=== PATIENT | male | born 1955 | race Caucasian/White ===

== ENCOUNTER 2016-09-20 17:04 | Emergency (ER) | payer SELFPAY ==
[~2016-09-20] VITALS: Ht 190.5 cm; Wt 97.4 kg
[~2016-09-20 17:04] MED LIST: ADLT ASA LOW81 MG PO; LISINOPRIL2.5 MG PO; MET12.5TAB PO; NITROGLYCER0.4 MG SL; PEPCID20 MG PO; PLAVIX75 MG PO; SIMVASTATIN40 MG PO; ZITHROMAX250 MG PO
[2016-09-20] MEDS ORDERED: DOXYCYCL HYC100 MG PO (17:12)
[2016-09-20] MEDS ORDERED: LASIX40 MG PO (17:13)
[2016-09-20 18:09] VITALS: BP 121/73
== END 2016-09-20 18:09 | disposition home or self-care (01) | DRG 603 ==
LOC: ED 17:04
DX: L02.212 Cutaneous abscess of back [any part, except buttock and flank] (principal); I10 Essential (primary) hypertension; I25.10 Atherosclerotic heart disease of native coronary artery without angina pectoris; Z95.5 Presence of coronary angioplasty implant and graft